=== PATIENT | male | born 1965 | race Caucasian/White ===

== ENCOUNTER → 2020-07-01 | Outpatient (CLI) | payer BC ==
--- NOTE | 2020-07-01 15:18 | US ---
EXAMINATION TYPE: US right groin DATE OF EXAM: 07/01/2020 COMPARISON: NONE CLINICAL HISTORY: R10.31 RLQ pain. Pt states a bulge and slight pain RLQ/Right groin, R/O hernia Within right groin where pt feels lump and pain there appears to be an ABD wall break with peristal sing bowel on valsalva maneuver IMPRESSION: Right inguinal hernia containing bowel identified during real-time scanning, neck of mateo ia 2.5 cm. Surgical referral is advised.
== END | disposition home or self-care (01) ==
LOC: RADUSWWP 14:49
PROVIDERS: ATTEND Family Medicine
DX: K40.90 Unilateral inguinal hernia, without obstruction or gangrene, not specified as recurrent (principal)